=== PATIENT | female | born 1950 | race Caucasian/White ===

== ENCOUNTER → 2016-12-05 | Outpatient (CLI) | payer OTHER ==
[2016-12-05 16:32] LABS: BASOPHILS # (AUTO) 0.01 10*3/UL; BASOPHILS % (AUTO) 0.1 % (0-1); EOSINOPHILS % (AUTO) 0.1 % (0-8); HEMOGLOBIN 10.7 g/dL (12.0-16.0); IMM GRAN % (AUTO) 0.4 % (0-5); IMM GRAN# (AUTO) 0.03 10*3/UL; LYMPHOCYTES # (AUTO) 1.74 10*3/uL; LYMPHOCYTES % (AUTO) 23.5 % (10-50); MEAN CORPUSCULAR HEMOGLOBIN 24.2 PG (27-31); MEAN CORPUSCULAR HGB CONC 28.9 g/dL (33-37); MEAN PLATELET VOLUME 13.4 FL (7.4-12.2); MONOCYTES # (AUTO) 0.25 10*3/UL (0.3-0.8); MONOCYTES % (AUTO) 3.4 % (5-15); NEUTROPHILS # (AUTO) 5.36 10*3/UL; NEUTROPHILS % (AUTO) 72.5 % (50-80); RDW COEFFICIENT OF VARIATION 16.9 % (11.5-14.5); RED BLOOD COUNT 4.42 10^6/uL (4.20-5.40)
[2016-12-05 16:37] LABS: BILIRUBIN,TOTAL 0.6 mg/dL (0.3-1.2); CALCIUM 9.5 mg/dL (8.7-10.7); CREATININE 1.1 mg/dL (0.50-1.20); LDL CHOLESTEROL,CALCULATED 99.4 mg/dL; MAGNESIUM 1.9 mg/dL (1.6-2.4); POTASSIUM 4.6 meq/L (3.8-5.2); TOTAL PROTEIN 6.4 g/dL (6.1-8.0)
[2016-12-05 16:44] LABS: HEMOGLOBIN A1C 6.18 % (4.2-6.0); MEAN BLOOD GLUCOSE (CALC) 119.794 mg/dL
[2016-12-05 16:57] LABS: PLATELET MORPHOLOGY COMMENT NORMAL MORPHOLOGY (NORM)
== END ==
LOC: MOB LAB 15:34
PROVIDERS: ATTEND Family Medicine
DX: I10 Essential (primary) hypertension (principal); I25.10 Atherosclerotic heart disease of native coronary artery without angina pectoris; J44.9 Chronic obstructive pulmonary disease, unspecified; R73.09 Other abnormal glucose; N17.9 Acute kidney failure, unspecified; G89.29 Other chronic pain; Z79.01 Long term (current) use of anticoagulants; F17.210 Nicotine dependence, cigarettes, uncomplicated
CPT/HCPCS: 36415; 80053; 80061; 82306; 83036; 83735; 84100; 84443; 85025; 99213; G0463

== ENCOUNTER → 2016-12-18 | Outpatient (CLI) | payer OTHER | LOC: MMPC 11:11 | PROVIDERS: ATTEND Surgery | DX: D64.9 Anemia, unspecified (principal); K59.00 Constipation, unspecified; Z86.718 Personal history of other venous thrombosis and embolism | CPT/HCPCS: 99201 ==

== ENCOUNTER → 2017-02-11 | Outpatient (CLI) | payer OTHER | LOC: MMPC 09:00 | PROVIDERS: ATTEND Family Medicine | DX: G89.29 Other chronic pain (principal); S90.31XA Contusion of right foot, initial encounter; R60.0 Localized edema; Z79.01 Long term (current) use of anticoagulants | CPT/HCPCS: 99214; G0463 ==

== ENCOUNTER → 2017-02-23 | Outpatient (CLI) | payer OTHER | LOC: MMPC 09:00 | PROVIDERS: ATTEND Family Medicine | DX: M79.671 Pain in right foot (principal); M79.672 Pain in left foot; R60.0 Localized edema; L57.0 Actinic keratosis; G89.29 Other chronic pain | CPT/HCPCS: 99214; G0463 ==

== ENCOUNTER 2017-10-03 13:53 | Inpatient (IN) ==
[2017-10-03] MEDS ORDERED: NORMAL SALINE 10 ML SYRINGE FLUSH IVP PRN ×2 (14:05→16:35)
[2017-10-03] MEDS ORDERED: Sodium Chloride 0.9% 1,000 ML PRIMARY IV ONE (14:05)
--- NOTE | 2017-10-03 14:07 | PDOC ---
General Adult HPI - General Chief Complaint: General Medical Stated Complaint: DIZZINESS, SLEEPING A LOT, HYDROCODONE USE Date Seen by Provider: 10/03/17 Time Seen by Provider: 14:00 Source: POSITIVE: Patient, Other (family) Exam Limitations: POSITIVE: No limitations Nurse's Notes Reviewed & Considered: Yes EMS Report Reviewed & Considered: Verbal - History of Present Illness Initial Comment: The patient is a 67-year-old female who presents to the emergency department by ambulance with complaints of increased sleepiness and generalized weakness. The patient reports that for the past several weeks she has not felt well. Her daughter reports that she has been sleeping more than usual especially the past few days. Her daughter has been trying to get her to come to the emergency room for the past week. For the past couple of days she has pretty much slept all the time. She states that she does not feel well in general. She was weak enough that the ambulance was called to bring her to the emergency department. She denies any headache, chest pain, current abdominal pain, numbness or weakness in her arms or legs. She does have a history of COPD and wears oxygen at home. She was on 3 L when EMS arrived however her oxygen tubing was kinked. The patient does report cough which has been more productive recently. She thinks she might of been running a fever the past few days. Have you received a tetanus shot in the past 10 years?: Unknown - Patient Home Medications Home Medications: Home Medications Calcium Acetate 1 cap PO TID #180 cap 11/08/15 Hydroxychloroquine Sulfate 400 mg PO DAILY #60 tab 11/08/15 Albuterol Sulfate [ALBUTEROL NEB SOLN] 1 unit NEB QID PRN #1 box 12/19/15 Oxygen (O2) 1 unit IH QHS #3.5 unit 02/11/16 Tiotropium Br/Olodaterol HCl [Stiolto Respimat Inhal [place]] 4 gm INH QD #1 inhaler 05/29/16 Walker [Ultra-Light Rollator] 1 ea MC ONCE #1 ea 11/04/16 Atorvastatin Calcium 1 tab PO DAILY #30 tab 11/19/16 Ergocalciferol (Vitamin D2) [Vitamin D2] 1 cap PO 2XW #16 cap 12/08/16 Pantoprazole Sodium 1 tab PO BID #60 tab 01/19/17 Citalopram Hydrobromide [Citalopram Hbr] 20 mg PO DAILY #60 tab 02/11/17 Clopidogrel Bisulfate [Plavix] 75 mg PO DAILY #90 tab 02/23/17 Docusate Sodium [Doc-Q-Lace] 100 mg PO TID #270 cap 02/23/17 Umeclidinium [place] [Incruse Ellipta] 62.5 mcg INH QD #1 inhaler 04/01/17 Lisinopril 1 tab PO BID #60 tab 07/02/17 Tizanidine HCl 1 tab PO TID PRN #120 tab 07/02/17 predniSONE Tab [Deltasone Tab] 1 tab PO DAILY #30 tab 07/02/17 celecoxib 200 mg capsule 200 mg PO BID #60 cap 07/30/17 gabapentin 600 mg tablet 600 mg PO TID #90 tab 07/30/17 metoprolol tartrate 25 mg tablet 1 tab PO BID #60 tab 09/02/17 hydrocodone 5 mg-acetaminophen 325 mg tablet See Label Instructions PO QID PRN # 150 tab 09/14/17 - Patient Allergies Allergies/Adverse Reactions: Allergies 3 Allergy/AdvReac Type Severity Reaction Status Date / Time heparin Allergy Unknown NOT Verified 10/03/17 18:03 APPLICABLE metal Allergy Unknown RASH Uncoded 10/03/17 18:03 Past Medical History - heen HEENT History: Cataracts Cardiovascular History: Hypertension, CAD Respiratory History: COPD Gastrointestinal History: Denies History Genitourinary History: Renal Failure, Other (please comment) Additional Genitourinary History: hx of renal failure r/t pe/dvt in 2011, dialysis intitaited buyt kidney function returned Endocrine History: Denies History Musculoskeletal History: Arthritis, Rheumatoid Arthritis Prosthesis or Implant: Yes (screws and plates in R ankle) Neurological History: Denies History Blood Disorders: Denies History Psychiatric History: Denies History History of Sexually Transmitted Diseases: No Cancer History: Denies History History of MDRO: No History of Other Communicable Diseases: No Alcohol Use: None In the Past 12 Months, Have Used or Abuse Any Substance: None Previous Surgical History: Yes Type / Date of Surgery: L ankle, DVT Anesthesia Reactions: No Malignant Hyperthermia: No Significant Family History: No pertinent family hx Past Medical History Reviewed: Reviewed - No Changes ROS - Limitations ROS Limitations: No Limitations Constitution: REPORTS: Fever, Weakness (Generalized weakness) Cardiovascular: REPORTS: Other (She reports that actually the edema in her legs has been better recently). DENIES: Chest Pain, Heart Palpitations Respiratory: REPORTS: Cough Non Productive, Cough Productive, Shortness Of Breath (Chronic). DENIES: Hurts To Breathe, Wheezing Neurological: REPORTS: Confusion, Other (Increased sleeping). DENIES: Headache , Numbness, Weakness Gastrointestinal: REPORTS: Diarrhea. DENIES: Abdominal Pain, Nausea Musculoskeletal: REPORTS: Denies MS Symptoms Genitourinary: REPORTS: Denies Symptoms Eyes: REPORTS: Denies Symptoms ENT: REPORTS: Denies Symptoms Skin: DENIES: Rash General Adult Exam - General Appearance General Appearance: POSITIVE: Other (The patient is awake, she does answer questions appropriately, she does appear chronically ill) - HEENT HEENT: POSITIVE: Head Inspection Nml, Eyes Inspection Nml, Ears Inspection Nml, Nose Inspection Nml, Dry Mucous Membranes - Neck Neck: POSITIVE: Normal Inspection. NEGATIVE: Lymphadenopathy - Respiratory Respiratory: POSITIVE: No Respiratory Distress, Other (She has diminished breath sounds bilaterally) - Cardiovascular Cardiovascular: POSITIVE: Regular Rate & Rhythm, No Murmur Peripheral Pulses: Dorsalis-pedis (R): 2+, Dorsalis-pedis (L): 2+ - Abdomen Abdomen: Soft: (All Quadrants), Denies Tenderness: (All Quadrants) - Skin Skin: POSITIVE: Normal Color, No Rash - Extremities Extremity: Non-Tender: (All Extremities), Normal ROM: (All Extremities), Normal Inspection: (All Extremities) - Neurological / Psychological Neurological: POSITIVE: personal care worker Normal As Tested, Motor Normal, Sensation Normal, Other (No focal neurologic deficits) General Adult Progress - Results Reviewed by me Xrays/CTs/US Reviewed by me: Yes Discussed with Radiologist: Yes Radiology Findings: Initial chest x-ray showed possible infiltrate in the right middle lobe per radiologist. CT scan of the chest shows bilateral pleural effusions right greater than left with airspace disease in the right middle lobe. Lab Results Reviewed by Me: Yes CBC and BMP: 10/03/17 14:17 10/03/17 14:17 EKG Interpretation:: POSITIVE: Normal Sinus Rhythm, Normal Rate, Normal ST/T - Patient's Progress MDM / ED Course: The patient was afebrile on arrival here. Blood cultures and lactate were drawn with initial IV start. Her EKG shows A. fib/flutter with a rate of 122. An IV was established and she did receive a bolus of normal saline. Initial venous blood gas revealed a pH of 7.3 to with a PCO2 of 62. Chest x-ray shows possible infiltrate in the right middle lobe per radiologist. Her d-dimer was elevated at 1.6 and her troponin was normal. White blood cell count was also normal. CTA of the chest was done and found bilateral pleural effusions right greater than left as well as some airspace disease in the right middle lobe. Findings are discussed with the patient and her family as well as Dr. Fuchs. Dr. Fuchs has made arrangements to admit patient for further treatment. The patient was started on Rocephin 2 g and Zithromax 500 mg for treatment of pneumonia. Patient Care Time - Estimated PCT Patient Care Time (In Minutes): 35 Vital Signs - Recent Vital Signs Vital Signs: Vital Signs (Last 8 hours) Temp Pulse Pulse Resp BP Pulse Ox 10/03/17 17:00 98.3 F 124 H 20 152/100 91 10/03/17 16:35 92 10/03/17 14:26 121 H 10/03/17 13:53 98.0 F 122 H 19 170/113 97 - VS Reviewed Vital Signs Reviewed: Yes Discharge Clinical Impression: Pneumonia, Atrial fibrillation and flutter, Confusion Discharge Disposition: Admit to Inpatient Condition: Fair Date Decision to Admit to Inpatient: 10/03/17 Time Decision to Admit to Inpatient: 16:15
--- NOTE | 2017-10-03 14:28 | EKG ---
[address] [address] Measurements Intervals [place] Rate: 121 P: MT: 0 QRS: 45 QRSD: 101 T: 54 QT: 330 QTc: 402 Interpretive Statements ATRIAL FIBRILLATION WITH RAPID VENTRICULAR RESPONSE NONSPECIFIC ST & T-WAVE ABNORMALITY ABNORMAL RHYTHM ECG Compared to ECG 05/15/2016 15:53:30 T-wave abnormality now present Sinus rhythm no longer present Electronically Signed On 10-04-17 12:37:28 [facility] by Pedro Pablo Izaguirre [email or web address]
[2017-10-03 14:39] LABS: VENOUS PH 7.32 (7.32-7.42)
[2017-10-03 14:48] LABS: BUN/CREATININE RATIO 28.33 (6-20); MAGNESIUM 1.9 mg/dL (1.6-2.4); SERUM ALBUMIN 3.1 g/dL (3.5-4.8)
[2017-10-03 15:10] LABS: Hematocrit [HCT] 35.1 % (37.0-47.0); Hemoglobin [HGB] 10.6 g/dL (12.0-16.0); MEAN CORPUSCULAR HEMOGLOBIN 25.9 PG (27-31); MEAN CORPUSCULAR HGB CONC 30.4 g/dL (33-37); MEAN CORPUSCULAR VOLUME 85 FL (81-99); MEAN PLATELET VOLUME 10.6 FL (7.4-12.2); NEUTROPHILS % (AUTO) 80.2 % (50-80); RED BLOOD COUNT 4.11 10^6/uL (4.20-5.40)
[2017-10-03 15:11] LABS: BASOPHILS # (AUTO) 0.01 10*3/UL; BASOPHILS % (AUTO) 0.1 % (0-1); EOSINOPHILS # (AUTO) 0.05 10*3/UL; EOSINOPHILS % (AUTO) 0.7 % (0-8); LYMPHOCYTES # (AUTO) 1.17 10*3/uL; MONOCYTES # (AUTO) 0.31 10*3/UL (0.3-0.8); NEUTROPHILS # (AUTO) 6.24 10*3/UL; PLATELET MORPHOLOGY COMMENT NORMAL MORPHOLOGY (NORM); WBC MORPHOLOGY COMMENT NORMAL MORPHOLOGY (NORM)
[2017-10-03 15:17] LABS: RBC MORPHOLOGY COMMENT SEE COMMENTS (NORM)
--- NOTE | 2017-10-03 15:28 | DI ---
Exam: FILM CXR Single frontal view chest INDICATION: Cough, hypoxia COMPARISON: Chest x-ray 03/03/16 FINDINGS: There is infiltrate in the right mid and lower lung field. Mild elevation right hemidiaphragm noted. Remaining lung sanford are clear. There is cardiomegaly. No venous congestion. Mediastinal contour within normal limits. Atherosclerotic calcification aortic knob. Possible trace right pleural effusion. Bony elements are within normal limits for age. No acute osseous abnormality. IMPRESSION: Airspace infiltrate in the right mid and lower lung field. Correlate for pneumonia. Possible trace right effusion. Cardiomegaly. No venous congestion.
--- NOTE | 2017-10-03 16:26 | PDOC ---
HPI - History of Present Illness History of Present Illness: This very nice 67-year-old female past medical history significant for COPD with chronic oxygen use and rheumatoid arthritis in the last few days she's been having of increased sleepiness and generalized weakness the last 2 days her daughter has been trying to get her to the emergency room but she would not come finally was evaluated ambulance was called and brought her to the emergency room was found to have right middle lower lobe pneumonia no PE on CAT scan also has productive cough which she developed lately Past Medical History Medical History: Rheumatoid arthritis, coronary artery disease, hypertension Surgical History: Cataract surgery In the Past 12 Months, Have Used or Abuse Any of the Following Substance: None Medication / Allergies Home Medications: Home Medications Medication Instructions Recorded Confirmed Type Calcium Acetate 1 cap PO TID #180 cap 11/08/15 10/03/17 History Hydroxychloroquine Sulfate 400 mg PO DAILY #60 tab 11/08/15 10/03/17 History Albuterol Sulfate [ALBUTEROL NEB 1 unit NEB QID PRN #1 box 12/19/15 10/03/17 History SOLN] Oxygen (O2) 1 unit IH QHS #3.5 unit 02/11/16 10/03/17 History Tiotropium Br/Olodaterol HCl 4 gm INH QD #1 inhaler 05/29/16 10/03/17 History [Stiolto Respimat Inhal [place]] Walker [Ultra-Light Rollator] 1 ea MC ONCE #1 ea 11/04/16 10/03/17 Rx Atorvastatin Calcium 1 tab PO DAILY #30 tab 11/19/16 10/03/17 Rx Ergocalciferol (Vitamin D2) 1 cap PO 2XW #16 cap 12/08/16 10/03/17 Rx [Vitamin D2] Pantoprazole Sodium 1 tab PO BID #60 tab 01/19/17 10/03/17 Rx Citalopram Hydrobromide 20 mg PO DAILY #60 tab 02/11/17 10/03/17 Rx [Citalopram Hbr] Clopidogrel Bisulfate [Plavix] 75 mg PO DAILY #90 tab 02/23/17 10/03/17 Rx Docusate Sodium [Doc-Q-Lace] 100 mg PO TID #270 cap 02/23/17 10/03/17 Rx Olodaterol HCl [[place] 1 unit INH ASDIR #4 #4 Samples 02/23/17 10/03/17 Sample Respimat] Sample Umeclidinium [place] [Incruse 62.5 mcg INH QD #1 inhaler 04/01/17 10/03/17 Rx Ellipta] Lisinopril 1 tab PO BID #60 tab 07/02/17 10/03/17 Clinic Tizanidine HCl 1 tab PO TID PRN #120 tab 07/02/17 10/03/17 Clinic predniSONE Tab [Deltasone Tab] 1 tab PO DAILY #30 tab 07/02/17 10/03/17 Clinic celecoxib 200 mg capsule 200 mg PO BID #60 cap 07/30/17 10/03/17 Rx gabapentin 600 mg tablet 600 mg PO TID #90 tab 07/30/17 10/03/17 Rx metoprolol tartrate 25 mg tablet 1 tab PO BID #60 tab 09/02/17 10/03/17 Rx hydrocodone 5 mg-acetaminophen 325 See Label Instructions PO QID PRN 09/14/17 Rx mg tablet #150 tab Mometasone/Formoterol [Dulera 100 8.8 gm IH QID 10/03/17 10/03/17 History Mcg/5 Mcg Inhaler] Allergies/Adverse Reactions: Allergies 3 Allergy/AdvReac Type Severity Reaction Status Date / Time heparin Allergy Unknown NOT Verified 10/03/17 18:03 APPLICABLE metal Allergy Unknown RASH Uncoded 10/03/17 18:03 Review of Systems - Review of Systems All Systems: Reviewed & No Additional Complaints Except as Stated - Respiratory Respiratory: REPORTS: Cough - Cardiovascular Cardiovascular: DENIES: Negative System Review, Chest Pain, Edema, Syncope, Palpitations, Orthopnea, Paroxysmal Nocturnal Dyspnea, Other, See HPI - Gastrointestinal Gastrointestinal / Abdominal: DENIES: Negative System Review, Nausea, Vomiting, Diarrhea, Constipation, Abdominal Pain, Bloody Stool, Poor Appetite, Heartburn, Regurgitation, Bloating, Lactose Intolerance, Melena, Bright Red Blood per Rectum, Other, See HPI Exam - Vitals Vital Signs: Vital Signs Height 5 ft 9 in Weight 175 lb - General General Appearance: No Acute Distress, Cooperative - Head Head Exam: Normal Inspection, Normocephalic, Atraumatic - Eye Eye Exam: POSITIVE: Normal Appearance, PERRL, EOMI, No Scleral Icterus - Neck Neck Exam: Normal Inspection, Full ROM, No Tenderness, No Lymphadenopathy, No Thyromegaly, JVP is not Raised - Respiratory Respiratory Exam: POSITIVE: Clear to Auscultation - Bilaterally, Breathing Non Labored, Normal To Percussion, Normal to Percussion and Palpation, Decreased Breath Sounds - Cardiovascular Cardiovascular Exam: POSITIVE: RRR, No Murmur, No Clicks, No Gallops, No Rubs, PMI Non-Displaced - GI/Abdominal GI/Abdominal Exam: POSITIVE: Normal Bowel Sounds, Non Tender, Non Distended, Soft, No Masses, No Hepatomegaly, No Splenomegaly, No Organomegaly - Extremities Extremities Exam: POSITIVE: Normal Inspection, Full ROM, Normal Capillary Refill , No Clubbing Present, No Edema Present, No Cyanosis Present, Negative Alice's sign, Dosalis Pedis Pulses - Stong & Regular Results - Labs CBC and BMP: 10/03/17 14:17 10/03/17 14:17 Assessment and Plan - Patient Problems (1) Pneumonia Current Visit: Yes Status: Acute Comment: Seen on chest x-ray and started Rocephin and Zithromax Code(s): J18.9 - Pneumonia, unspecified organism Qualifiers: Pneumonia type: due to unspecified organism Laterality: right Lung location: lower lobe of lung Qualified Code(s): J18.1 - Lobar pneumonia, unspecified organism (2) Chronic obstructive pulmonary disease Current Visit: No Status: Acute Onset Date: 11/08/15 Comment: Into new inhalers patient also on chronic prednisone for rheumatoid arthritis Code(s): J44.9 - Chronic obstructive pulmonary disease, unspecified Qualifiers: (3) Rheumatoid arthritis Current Visit: No Status: Acute Comment: Continue usual medication Code(s): M06.9 - Rheumatoid arthritis, unspecified
[2017-10-03] MEDS ORDERED: ERGOCALCIFEROL 50,000 IU CAPSULE PO SCH (16:35)
[2017-10-03] MEDS ORDERED: TIOTROPIUM BR INH SCH (16:35)
[2017-10-03] MEDS ORDERED: OLODATEROL HCL INH SCH (16:35)
[2017-10-03] MEDS ORDERED: LIDOCAINE W/ SODIUM BICARB 0.5 ML SYR SUBD PRN (16:35)
[2017-10-03] MEDS ORDERED: CEFTRIAXONE SODIUM 2 GM VIAL IV ONE (16:54)
[2017-10-03] MEDS ORDERED: AZITHROMYCIN 500 MG VIAL IV ONE (16:55)
[2017-10-03] MEDS ORDERED: Sodium Chloride 0.9% 100 ML IV ONE (16:55)
[2017-10-03] MEDS ORDERED: Sodium Chloride 0.9% 250 ML IV ONE (16:56)
[2017-10-03] MEDS ORDERED: cefTRIAXone Inj 2 GM in Sodium Chloride 0.9% 100 ML IV SCH (17:00)
--- NOTE | 2017-10-03 17:00 | DI ---
Exam: CTA CHEST W/WO Contrast INDICATION: Hypoxia, elevated d-dimer TECHNIQUE: Multiple, contiguous axial cuts of the chest are obtained before and following the administration of 60 cc of Isovue-300 IV contrast. High resolution axial images as well as sagittal and coronal reformatted images are available. COMPARISON: CT angiogram chest 02/11/16, chest radiograph 10/03/17 FINDINGS: No pulmonary emboli. Moderate right and small left pleural effusion. Associated compressive atelectasis of adjacent lung bases. At the periphery of the right middle lobe lateral segment there is focal airspace opacity. Remaining lung sanford are clear. No pneumothorax. No adenopathy. Extensive vascular calcification of the thoracic aorta and larger branches. Thoracic aorta normal caliber without dissection. There is coronary artery calcification. Cardiomegaly. No pericardial effusion. Multilevel endplate degenerative osteophyte formation of the thoracic spine. No acute osseous abnormality. IMPRESSION: 1. No pulmonary embolism. 2. Moderate right and small left free-flowing pleural effusion. Associated compressive atelectasis of adjacent lung bases. 3. At the periphery of the right middle lobe lateral segment there is patchy airspace opacity. Correlate for pneumonia on a clinical basis. Remaining lung sanford are clear. 3. Cardiomegaly with coronary artery calcification.
[2017-10-03] MEDS ORDERED: cefTRIAXone Inj 2 GM in Sodium Chloride 0.9% 100 ML IV ONE (17:05)
[2017-10-03] MEDS ORDERED: ALBUTEROL SULFATE 2.5 MG/3 ML NEB SCH (19:00)
[2017-10-03] MEDS: HYDROcodone-APAP 5 MG -325 MG TABLET PO PRN (19:21)
[2017-10-03 19:40] LABS: CLARITY,URINE CLEAR (CLEAR); COLOR,URINE YELLOW (Y); PH,URINE 5.5 (5.0-8.5); PROTEIN,URINE 30 mg/dl (NEG); URINE SAMPLE TYPE CLEAN CATCH URINE
[2017-10-03 19:41] LABS: BACTERIA,URINE MANY; BILIRUBIN,URINE SMALL (NEG); GLUCOSE, URINE (UA) NEGATIVE (NEG); NITRATE,URINE POSITIVE (NEG); OCCULT BLOOD,URINE NEGATIVE (NEG); SQUAMOUS EPITHELIAL CELL,UR MODERATE
[2017-10-03] MEDS: LEVALBUTEROL HCL 1.25 MG/3 ML NEB SCH (19:42)
[2017-10-03] MEDS: Metoprolol TARTRATE Tab 25 MG TAB PO SCH (20:39)
[2017-10-03] MEDS: DOCUSATE 100 MG CAPSULE PO SCH (20:39)
[2017-10-03] MEDS: GABAPENTIN 300 MG CAPSULE PO SCH (20:39)
[2017-10-03] MEDS: PANTOPRAZOLE 40 MG TABLET PO SCH (20:40)
[2017-10-03] MEDS: LISINOPRIL 5 MG TABLET PO SCH (20:40)
[2017-10-03] MEDS: CALCIUM ACETATE PO SCH (20:41)
[2017-10-04] MEDS: LEVALBUTEROL HCL 1.25 MG/3 ML NEB SCH ×4 (01:38→18:40)
[2017-10-04 06:27] LABS: Hematocrit [HCT] 33.9 % (37.0-47.0); Hemoglobin [HGB] 10.3 g/dL (12.0-16.0); MEAN CORPUSCULAR HEMOGLOBIN 25.8 PG (27-31); MEAN CORPUSCULAR VOLUME 85 FL (81-99); RED BLOOD COUNT 3.98 10^6/uL (4.20-5.40)
[2017-10-04 06:28] LABS: BASOPHILS # (AUTO) 0.03 10*3/UL; BASOPHILS % (AUTO) 0.3 % (0-1); EOSINOPHILS # (AUTO) 0.09 10*3/UL; EOSINOPHILS % (AUTO) 0.9 % (0-8); LYMPHOCYTES # (AUTO) 2.68 10*3/uL; MEAN CORPUSCULAR HGB CONC 30.3 g/dL (33-37); MEAN PLATELET VOLUME 9.3 FL (7.4-12.2); MONOCYTES # (AUTO) 1.04 10*3/UL (0.3-0.8); NEUTROPHILS # (AUTO) 5.66 10*3/UL; NEUTROPHILS % (AUTO) 59.6 % (50-80); PLATELET MORPHOLOGY COMMENT SEE COMMENTS (NORM); WBC MORPHOLOGY COMMENT NORMAL MORPHOLOGY (NORM)
[2017-10-04 06:29] LABS: RBC MORPHOLOGY COMMENT SEE COMMENTS (NORM)
[2017-10-04] MEDS: PANTOPRAZOLE 40 MG TABLET PO SCH (06:50)
[2017-10-04 07:52] LABS: SERUM ALBUMIN 3.1 g/dL (3.5-4.8)
[2017-10-04] MEDS ORDERED: HYDROXYCHLOROQUINE SULFATE 400 MG PO SCH (09:00)
[2017-10-04] MEDS: predniSONE Tab 20 MG TAB PO SCH (09:04)
[2017-10-04] MEDS: DOCUSATE 100 MG CAPSULE PO SCH ×4 (09:04→21:01)
[2017-10-04] MEDS: LISINOPRIL 5 MG TABLET PO SCH ×2 (09:05→21:02)
[2017-10-04] MEDS: Metoprolol TARTRATE Tab 25 MG TAB PO SCH ×2 (09:05→21:01)
[2017-10-04] MEDS: GABAPENTIN 300 MG CAPSULE PO SCH (09:05)
[2017-10-04] MEDS: CITALOPRAM 20 MG TABLET PO SCH (09:05)
--- NOTE | 2017-10-04 12:25 | PDOC(PROG) ---
Interval History: Doing much better breathing better Objective : Data - Labs CBC and BMP: 10/04/17 05:55 10/04/17 05:55 Objective : Exam - General General Appearance: No Acute Distress - Neck Neck Exam: Normal Inspection, Full ROM, No Tenderness - Respiratory Respiratory Exam: Clear to Auscultation - Bilaterally, Breathing Non Labored, Normal To Percussion, Normal to Percussion and Palpation - Cardiovascular Cardiovascular Exam: RRR, No Murmur, No Clicks, No Gallops, No Rubs, PMI Non- Displaced - Rectal Rectal Exam: Deferred - External Exam: Deferred Exam: Deferred - Extremities Extremities Exam: No Clubbing Present, No Edema Present, No Cyanosis Present Assessment and Plan - Patient Problems (1) Pneumonia Current Visit: Yes Status: Acute Comment: Much better continuing antibiotics the lungs are moving more air Code(s): J18.9 - Pneumonia, unspecified organism Qualifiers: Pneumonia type: due to unspecified organism Laterality: right Lung location: lower lobe of lung Qualified Code(s): J18.1 - Lobar pneumonia, unspecified organism (2) Chronic obstructive pulmonary disease Current Visit: No Status: Acute Onset Date: 11/08/15 Comment: Improving Code(s): J44.9 - Chronic obstructive pulmonary disease, unspecified Qualifiers: (3) Rheumatoid arthritis Current Visit: No Status: Acute Comment: Continue current meds Code(s): M06.9 - Rheumatoid arthritis, unspecified
[2017-10-04] MEDS: CALCIUM ACETATE PO SCH (12:57)
[2017-10-04] MEDS: NICOTINE 21 MG /DAY PATCH TRANSDERM SCH (13:28)
[2017-10-04] MEDS ORDERED: LIDOCAINE HCL 2 % 10 ML JELLY URO-JECT TOPICAL PRN (13:40)
[2017-10-04 16:00] LABS: ABG BASE EXCESS 7 MMOL/L (-2-2); ABG OXYGEN SATURATION 94 % (90-100); ABG PCO2 84 MMHG (34-38); ABG PH 7.22 (7.35-7.45); ABG PO2 86 MMHG (65-75); ALLEN TEST YES; COLLECTION SITE LEFT RADIAL
[2017-10-04] MEDS ORDERED: methylPREDNISolone Succ Inj 250 MG in Sodium Chloride 0.9% 100 ML IV ONE (16:05)
[2017-10-04 16:10] LABS: SERUM ALBUMIN 3.2 g/dL (3.5-4.8)
[2017-10-04] MEDS ORDERED: METHYLPREDNISOLONE ONE (16:13)
[2017-10-04 16:19] LABS: Hematocrit [HCT] 33.3 % (37.0-47.0); Hemoglobin [HGB] 10.2 g/dL (12.0-16.0); MEAN CORPUSCULAR HEMOGLOBIN 26.2 PG (27-31); MEAN CORPUSCULAR HGB CONC 30.7 g/dL (33-37); MEAN CORPUSCULAR VOLUME 85 FL (81-99); RED BLOOD COUNT 3.9 10^6/uL (4.20-5.40)
[2017-10-04 16:20] LABS: BASOPHILS # (AUTO) 0.02 10*3/UL; BASOPHILS % (AUTO) 0.2 % (0-1); EOSINOPHILS # (AUTO) 0.08 10*3/UL; LYMPHOCYTES # (AUTO) 0.75 10*3/uL; MEAN PLATELET VOLUME 10.2 FL (7.4-12.2); MONOCYTES # (AUTO) 0.32 10*3/UL (0.3-0.8); MONOCYTES % (AUTO) 3.9 % (5-15); NEUTROPHILS # (AUTO) 7.03 10*3/UL; NEUTROPHILS % (AUTO) 85.8 % (50-80); PLATELET MORPHOLOGY COMMENT NORMAL MORPHOLOGY (NORM); WBC MORPHOLOGY COMMENT NORMAL MORPHOLOGY (NORM)
[2017-10-04 16:21] LABS: RBC MORPHOLOGY COMMENT SEE COMMENTS (NORM)
[2017-10-04] MEDS: cefTRIAXone Inj 2 GM in Sodium Chloride 0.9% 100 ML IV SCH (16:56)
[2017-10-04] MEDS ORDERED: cefTRIAXone 1 GM VIAL ONE (17:00)
[2017-10-04 17:54] LABS: ABG BASE EXCESS 10 MMOL/L (-2-2); ABG OXYGEN SATURATION 80 % (90-100); ABG PCO2 55 MMHG (34-38); ABG PH 7.41 (7.35-7.45); ABG PO2 45 MMHG (65-75); COLLECTION SITE LEFT RADIAL
[2017-10-04 17:55] LABS: ALLEN TEST YES
[2017-10-04] MEDS: ATORVASTATIN 20 MG TABLET PO SCH (21:02)
[2017-10-04] MEDS: methylPREDNISolone 40 MG/1 ML VIAL IVP SCH (21:49)
[2017-10-05] MEDS: LEVALBUTEROL HCL 1.25 MG/3 ML NEB SCH ×4 (00:07→19:06)
[2017-10-05] MEDS: methylPREDNISolone 40 MG/1 ML VIAL IVP SCH ×4 (02:54→21:58)
[2017-10-05 06:27] LABS: Hematocrit [HCT] 28.9 % (37.0-47.0); Hemoglobin [HGB] 8.8 g/dL (12.0-16.0); MEAN CORPUSCULAR HEMOGLOBIN 25.5 PG (27-31); MEAN CORPUSCULAR HGB CONC 30.4 g/dL (33-37); MEAN CORPUSCULAR VOLUME 84 FL (81-99); MEAN PLATELET VOLUME 10.8 FL (7.4-12.2); RED BLOOD COUNT 3.45 10^6/uL (4.20-5.40)
[2017-10-05 06:33] LABS: BLOOD UREA NITROGEN 27 mg/dL (7-22); SERUM ALBUMIN 2.9 g/dL (3.5-4.8)
[2017-10-05 08:39] LABS: VENOUS PH 7.45 (7.32-7.42)
[2017-10-05] MEDS: Patch Removal PATCH TRANSDERM SCH (09:00)
[2017-10-05] MEDS: DOCUSATE 100 MG CAPSULE PO SCH ×3 (09:23→20:04)
[2017-10-05] MEDS: Metoprolol TARTRATE Tab 25 MG TAB PO SCH ×2 (09:23→20:05)
[2017-10-05] MEDS: CITALOPRAM 20 MG TABLET PO SCH (09:23)
[2017-10-05] MEDS: LISINOPRIL 5 MG TABLET PO SCH ×2 (09:23→20:04)
[2017-10-05] MEDS: predniSONE Tab 20 MG TAB PO SCH (09:24)
[2017-10-05] MEDS: NICOTINE 21 MG /DAY PATCH TRANSDERM SCH (09:24)
[2017-10-05] MEDS ORDERED: CYANOCOBALAMIN 1000 MCG/1 ML VIAL IM ONE (11:06)
--- NOTE | 2017-10-05 11:10 | PDOC(PROG) ---
Interval History: Patient is doing much much better today awake oriented 3 did quite well with the BiPAP. Objective : Data - Labs CBC and BMP: 10/05/17 06:00 10/05/17 06:00 Objective : Exam - Neck Neck Exam: Normal Inspection, Full ROM, No Tenderness - Respiratory Respiratory Exam: Clear to Auscultation - Bilaterally, Breathing Non Labored, Normal To Percussion, Normal to Percussion and Palpation - Cardiovascular Cardiovascular Exam: RRR, No Murmur, No Clicks, No Gallops, No Rubs, PMI Non- Displaced - GI/Abdominal GI/Abdominal Exam: Normal Bowel Sounds, Non Tender, Non Distended, Soft, No Masses, No Hepatomegaly, No Splenomegaly, No Organomegaly - Rectal Rectal Exam: Deferred Assessment and Plan - Patient Problems (1) Pneumonia Current Visit: Yes Status: Acute Comment: Continue IV antibiotics Code(s): J18.9 - Pneumonia, unspecified organism Qualifiers: Pneumonia type: due to unspecified organism Laterality: right Lung location: lower lobe of lung Qualified Code(s): J18.1 - Lobar pneumonia, unspecified organism (2) Chronic obstructive pulmonary disease Current Visit: No Status: Acute Onset Date: 11/08/15 Comment: Added steroids patient had CO2 retention we needed to start BiPAP now within normal limits most likely secondary to Neurontin with central nervous system depression stop this medication patient is aware Code(s): J44.9 - Chronic obstructive pulmonary disease, unspecified Qualifiers: (3) Rheumatoid arthritis Current Visit: No Status: Acute Comment: Patient is not complaining of any pain Code(s): M06.9 - Rheumatoid arthritis, unspecified (4) Anemia Current Visit: Yes Status: Acute Comment: Started ferrous gluconate and B12 injection check level Code(s): D64.9 - Anemia, unspecified Qualifiers: Anemia type: iron deficiency
[2017-10-05] MEDS ORDERED: CALCIUM CARBONATE 500 MG (TUMS) CHEWABLE TABLET PO PRN (12:06)
[2017-10-05] MEDS ORDERED: CALCIUM CARBONATE 500 MG (TUMS) CHEWABLE TABLET PO ONE (12:17)
[2017-10-05] MEDS ORDERED: Influenza 17-18 Vaccine (6mo+) Quad 60mcg/0.5ml PF IM ONE (13:09)
--- NOTE | 2017-10-05 14:11 | PTI REPORT ---
Thank you for the referral of Luda Castillo. She was seen on 10/05/17 for an inpatient evaluation secondary to weakness. SUBJECTIVE: The patient is a 67-year-old female. The patient reports that she lives in [place] with her , daughter, and her family. The patient reports that she lives in a trailer home. The patient reports she has five stairs to get into her home and uses a four wheeled walker. The patient is on 2-3 liters of oxygen at home. She receives assistance with all ADLs from her family. The patient reports she has neuropathy in her feet. She states she is not very active and she stays in her bedroom a lot of the time. PAST MEDICAL HISTORY: Past medical history can be found in the patient's medical record. OBJECTIVE FINDINGS: General observations: The patient was seen in bed with a Bi-PAP on and oxygen saturation ranged anywhere from 83-91% with heart rate around 130 beats per minute. Bed mobility: The patient required min assist x1 for supine to sit transfer to edge of bed. Oxygen saturation was monitored while the patient was seated edge of bed. The patient required stand by assist to transfer from sit to supine. Transfers: The patient required mod assist x2 for sit to stand transfer from edge of bed with bed elevated a little bit with standard walker and max cues for technique and hand placement. The patient was able to take two side steps to reposition to head of bed with contact guard assist x2 for safety. ASSESSMENT: The patient is a 67-year-old female that presents with pneumonia, COPD, and generalized weakness. The patient would benefit from skilled therapy to improve functional mobility and to return to least restrictive environment. The patient's prognosis for therapy is fair. Problem List: Decreased strength Decreased mobility Decreased endurance Short-Term Goals: To be met by discharge from inpatient: Patient will be able to ascend and descend five stairs in order to return home safely. Patient will be able to ambulate 150 feet with least restrictive assistive device in order to return home safely. Patient will be able to tolerate 15 minutes of activity in order to improve overall endurance and mobility. Long-Term Goals: To be met following discharge from inpatient: Patient will be able to return home safely per prior level of function. TREATMENT PLAN: Patient will be seen B.I.D during the week and one time per day over the weekend as an inpatient for therapeutic exercise, neuromuscular reeducation, functional activity, gait training, and modalities as needed. INITIAL TREATMENT: Treatment today consisted of the initial evaluation followed by seated bed mobility and seated bed endurance. The patient was able to sit edge of bed x15 minutes with vitals being monitored in stand by assistance. The patient report lightheadedness and dizziness during seated bed activities. The patient was returned to bed post treatment with call light within reach and bed alarm activated. FLORECITA
[2017-10-05] MEDS: ONDANSETRON 4 MG/2 ML VIAL IVP PRN (14:59)
[2017-10-05] MEDS: FERROUS GLUCONATE 324 MG TABLET PO SCH ×2 (15:05→20:05)
--- NOTE | 2017-10-05 16:25 | PT.PROG ---
Progress Note Progress Note: Patient refused therapy this afternoon, patient reported being nauseous.
[2017-10-05] MEDS: cefTRIAXone Inj 2 GM in Sodium Chloride 0.9% 100 ML IV SCH (17:03)
[2017-10-05] MEDS ORDERED: ALPRAZolam Tab 0.25 MG TABLET PO PRN ×2 (17:18→18:28)
[2017-10-05 18:05] LABS: VENOUS PH 7.37 (7.32-7.42)
[2017-10-05] MEDS: Sodium Chloride 0.9% 1,000 ML PRIMARY IV SCH (19:49)
[2017-10-05] MEDS: ATORVASTATIN 20 MG TABLET PO SCH (20:04)
[2017-10-05] MEDS: HYDROcodone-APAP 5 MG -325 MG TABLET PO PRN (20:06)
[2017-10-06] MEDS: LEVALBUTEROL HCL 1.25 MG/3 ML NEB SCH ×3 (01:11→13:51)
[2017-10-06] MEDS: methylPREDNISolone 40 MG/1 ML VIAL IVP SCH ×3 (04:27→14:54)
[2017-10-06] MEDS ORDERED: Sodium Chloride 0.9% 1,000 ML PRIMARY IV ONE ×2 (05:05→10:18)
[2017-10-06] MEDS: ONDANSETRON 4 MG/2 ML VIAL IVP PRN (08:11)
[2017-10-06] MEDS ORDERED: DILTIAZEM CD 240 MG CAP PO SCH (09:00)
[2017-10-06 09:09] LABS: VENOUS PH 7.36 (7.32-7.42)
[2017-10-06] MEDS: predniSONE Tab 20 MG TAB PO SCH (09:32)
[2017-10-06] MEDS: DOCUSATE 100 MG CAPSULE PO SCH ×2 (09:33→14:53)
[2017-10-06] MEDS: FERROUS GLUCONATE 324 MG TABLET PO SCH ×2 (09:34→14:53)
[2017-10-06] MEDS: CITALOPRAM 20 MG TABLET PO SCH (09:34)
[2017-10-06] MEDS: NICOTINE 21 MG /DAY PATCH TRANSDERM SCH (09:35)
[2017-10-06] MEDS ORDERED: Influenza 17-18 Vaccine (6mo+) Quad 60mcg/0.5ml PF IM ONE (09:40)
[2017-10-06] MEDS: Patch Removal PATCH TRANSDERM SCH (10:04)
[2017-10-06] MEDS: Sodium Chloride 0.9% 1,000 ML PRIMARY IV SCH (10:12)
[2017-10-06] MEDS ORDERED: FUROSEMIDE 10 MG/1 ML - 4 ML IVP ONE (10:19)
--- NOTE | 2017-10-06 11:33 | OT.PROG ---
Progress Note Progress Note: S: pt stated half way through therapy that she was feeling nauseous. She also told us that she was not going to do much. O: pt was seen in her room needing min A to completed bed mobility supine to EOB. She then completed x2 sit to stands, each for 1 min. Pt also completed PT after sitting . She completed bed mobility from EOB to supine Ind and nursing was present as she was feeling nauseous. A: pt may continue to benefit from therapy to increase her activity tolerance. At this time pt is not real motivated. P:continue per POC.
--- NOTE | 2017-10-06 11:34 | PDOC(PROG) ---
Interval History: Patient feels better she is definitely more awake BiPAP is been working great off the Neurontin now Objective : Data - Labs CBC and BMP: 10/05/17 06:00 10/05/17 06:00 Objective : Exam - General General Appearance: Cooperative - Respiratory Respiratory Exam: Clear to Auscultation - Bilaterally, Breathing Non Labored, Normal To Percussion, Normal to Percussion and Palpation, Decreased Breath Sounds - Cardiovascular Cardiovascular Exam: RRR, No Murmur, No Clicks, No Gallops, No Rubs, PMI Non- Displaced - GI/Abdominal GI/Abdominal Exam: Normal Bowel Sounds, Non Tender, Non Distended, Soft, No Masses, No Hepatomegaly, No Splenomegaly, No Organomegaly Assessment and Plan - Patient Problems (1) Pneumonia Current Visit: Yes Status: Acute Comment: Continue IV antibiotics Code(s): J18.9 - Pneumonia, unspecified organism Qualifiers: Pneumonia type: due to unspecified organism Laterality: right Lung location: lower lobe of lung Qualified Code(s): J18.1 - Lobar pneumonia, unspecified organism (2) Chronic obstructive pulmonary disease Current Visit: No Status: Acute Onset Date: 11/08/15 Comment: Continue IV steroids and inhalers Code(s): J44.9 - Chronic obstructive pulmonary disease, unspecified Qualifiers: (3) Rheumatoid arthritis Current Visit: No Status: Acute Comment: Stable at present time Code(s): M06.9 - Rheumatoid arthritis, unspecified (4) Anemia Current Visit: Yes Status: Acute Comment: Most likely secondary to iron deficiency will heme check stools will prop possible need a colonoscopy this patient is a heavy smoker anemia we will do a CT scan abdomen and pelvis also considering she has been having low urine output I believe she is dry we have given her half a liter bolus last night and 1 L today and has been on 75 an hour yesterday and I believe the blood pressure is a little elevated as a compensatory mechanism to keep the brain and kidneys perfused. Also I stopped the lisinopril Prinivil 5 twice a day and started her on Cardizem 240 instead I discussed the case with his nurse on agreement and the patient Code(s): D64.9 - Anemia, unspecified Qualifiers: Anemia type: iron deficiency
--- NOTE | 2017-10-06 11:45 | PT.PROG ---
Progress Note Progress Note: S. Patient stated that she is very tired this morning. She reports that she is not feeling great. O. Patient performed seated exercises in the form of; long arc quads, heel toe raises and marches all x 10. Patient performed sit to stands x 3 and stepped up on the scale. Patient sat at edge of bed for approximately 5 minutes. Patient was left in bed with alarm and call light. A. Patient tolerated exercises poor. She is very weak and has very poor endurance. Patient would continue to benefit from skilled therapy at this time. P. Continue POC.
--- NOTE | 2017-10-06 13:47 | EKG ---
[address] [place] [address] Measurements Intervals [place] Rate: 126 P: NH: 0 QRS: 72 QRSD: 102 T: 100 QT: 295 QTc: 369 Interpretive Statements ATRIAL FLUTTER/FIBRIATION WITH RAPID VENTRICULAR RESPONSE ST & T-WAVE ABNORMALITY POSSIBLE INFRO-LATERAL ISCHEMIA ABNORMAL RHYTHM ECG Compared to ECG 10/03/2017 14:26:36 T-wave abnormality still present Electronically Signed On 10-06-17 14:41:18 MST by Pedro Pablo Izaguirre [email or web address]
[2017-10-06] MEDS: HYDROcodone-APAP 5 MG -325 MG TABLET PO PRN (14:53)
--- NOTE | 2017-10-06 15:05 | CD ---
[facility] Interpretive Statements [email or web address]
[2017-10-06 16:34] VITALS: BP 174/103; RESP 17; TEMP 97.2; O2SAT 90
[2017-10-06] MEDS ORDERED: cefTRIAXone Inj 2 GM in Sodium Chloride 0.9% 100 ML IV SCH (17:00)
--- NOTE | 2017-10-06 17:11 | DCSUMMARY ---
Hospitalization Summary Hospital Course: Final Discharge Diagnosis: Current Visit Problems Problem Status Onset Code Pneumonia Acute J18.9 Atrial fibrillation and flutter Acute I48.91, I48.92 Confusion Acute R41.0 Anemia Acute D64.9 Diagnostic Data, Laboratory Data, and Procedures of Signifigance: Laboratory Results 10/05/17 10/06/17 10/06/17 Range/Units 17:58 09:03 12:09 VBG pH 7.37 7.36 (7.32-7.42) VBG pCO2 53 47 (45-55) mmHg VBG HCO3 31 H 26 (22-26) mmol/L VBG Base Excess 6 H 1 (-2-2) MMOL/L Troponin I 0.037 (< 0.040) ng/mL Abnormal Lab Results (Last 24 Hours) Range/Units 10/05/17 17:58 VBG HCO3 (22-26) mmol/L 31 H VBG Base Excess (-2-2) MMOL/L 6 H CBC and BMP 10/05/17 06:00 10/05/17 06:00 Medical History Pneumonia (Acute) Atrial fibrillation and flutter (Acute) Confusion (Acute) Anemia (Acute) Rheumatoid arthritis with rheumatoid factor of unspecified site without organ or systems involvement (Acute 11/04/16) Other chronic pain (Acute 12/12/15) HTN (hypertension) with goal to be determined (Acute 11/08/15) Chronic obstructive pulmonary disease (Acute 11/08/15) Chronic anticoagulation (Acute 11/08/15) Chronic anemia (Acute 12/18/16) Dyspnea (Acute) Acute coronary syndrome (Acute) Dehydration (Acute) Near syncope (Acute) Renal failure (Acute) Adrenal insufficiency (Acute) Hypotension (Acute) Acute renal failure (Acute) Rheumatoid arthritis (Acute) Coronary artery disease (Acute) History of DVT (deep vein thrombosis) (Acute) UTI (urinary tract infection) (Acute) Palpitations (Acute) Orthostatic hypotension (Acute) Nausea and vomiting (Inactive) Benign hypertension COPD (chronic obstructive pulmonary disease) Chronic pain Deep vein thrombosis (DVT) Deep venous thrombosis Hyperlipidemia Peripheral vascular disease RA (rheumatoid arthritis) Renal failure History and Physical pertinent to Admission: This very nice 67-year-old female past medical history significant for COPD with chronic oxygen use and rheumatoid arthritis in the last few days she's been having of increased sleepiness and generalized weakness the last 2 days her daughter has been trying to get her to the emergency room but she would not come finally was evaluated ambulance was called and brought her to the emergency room was found to have right middle lower lobe pneumonia no PE on CAT scan also has productive cough which she developed lately Course of Hospitalization: This very nice 67-year-old female during her hospital stay she was treated with the ceftriaxone 2 g daily and steroids for possible right lower lobe infiltrate and COPD exacerbation which is improved she also needed 2 nights of BiPAP for her CO2 retention. She has been having low urine output she also had some elevation in her BUN and creatinine very slightly but with some fluids this reversed. I kept on a given her a little bit of more fluids with 1 dose of Lasix today still urine output remained the marginal I did some cardiothoracic impedance studies since I didn't have an echo at my disposal. And she showed low stroke volume and the very low stroke index with high systemic vascular resistance and some increased thoracic fluid content pretty much this tells me that the patient ejection fraction might be very low. I am unable to work her up any further most likely will need a catheter since she had stents in the past and echo and cardiology services. Troponins are negative I will also stopped her Neurontin which showed a major sleepy and retaining more CO2. Won't be surprised if this patient has pulmonary hypertension as well I discussed the case with Dr. Palma cardiology at [facility] which graciously accepted the patient for further evaluation and treatment. She has received the 3 days of IV steroids and IV antibiotics WBCs are within normal limits. I have stopped the beta dileep this morning and CATHERINE inhibitor and put her on Cardizem 240 she only received 1 dose of this this a.m. and 9 AM. In regards to her COPD exacerbation she can probably go to oral prednisone 40 mg for next 5 days. And continue either ceftriaxone IV 2 g while she is in the hospital or Augmentin 875/125 twice a day for 4 more days Past Medical History Medical History: Rheumatoid arthritis, coronary artery disease, hypertension Surgical History: Cataract surgery On the date of discharge, the patient was examined: Gen.: No acute distress, alert, nontoxic Heart: Regular rate and rhythm, no murmurs, clicks, gallops, or rubs Lungs: Clear to auscultation bilaterally, breathing is nonlabored Abdomen/GI: Normal tones on auscultation, soft, nontender, nondistended Musculoskeletal/extremities: No clubbing, cyanosis, or edema Vitals reviewed and are listed below Vital Signs (24 hrs) Temp Pulse Pulse Pulse Resp BP Pulse Ox 10/06/17 16:33 97.2 F 17 174/103 90 10/06/17 15:00 125 H 94 10/06/17 13:52 126 H 18 96 10/06/17 13:51 126 H 18 96 10/06/17 11:54 97.6 F 127 H 20 178/122 95 10/06/17 11:00 127 H 97 10/06/17 08:19 97.6 F 124 H 24 172/108 95 10/06/17 07:00 126 H 10/06/17 06:42 118 H 18 94 10/06/17 06:37 94 10/06/17 06:35 122 H 10/06/17 05:00 98.5 F 126 H 24 186/128 95 10/06/17 04:59 94 10/06/17 03:00 123 H 10/06/17 02:54 95 10/06/17 01:12 121 H 18 95 10/06/17 01:11 121 H 18 95 10/06/17 00:53 98.7 F 118 H 22 154/109 94 10/05/17 23:00 120 H 92 10/05/17 20:13 98.8 F 128 H 26 H 159/65 95 10/05/17 19:07 121 H 24 93 10/05/17 19:06 121 H 24 93 10/05/17 19:00 124 H 10/05/17 18:53 97 Assessment and Plan: 1. As per discharge assessments above 2. Disposition: 3. Condition on discharge, stable and improved. 4. Diet: regular diet 5. Activities: resume normal activities 6. Follow-Up: 1. PCP 2. 7. Medications at the Time of Discharge: Home Medications Medication Instructions Recorded Confirmed Type Calcium Acetate 1 cap PO TID #180 cap 11/08/15 10/03/17 History Hydroxychloroquine Sulfate 400 mg PO DAILY #60 tab 11/08/15 10/03/17 History Albuterol Sulfate [ALBUTEROL NEB 1 unit NEB QID PRN #1 box 12/19/15 10/03/17 History SOLN] Oxygen (O2) 1 unit IH QHS #3.5 unit 02/11/16 10/03/17 History Tiotropium Br/Olodaterol HCl 4 gm INH QD #1 inhaler 05/29/16 10/03/17 History [Stiolto Respimat Inhal Calvin] Walker [Ultra-Light Rollator] 1 ea MC ONCE #1 ea 11/04/16 10/03/17 Rx Atorvastatin Calcium 1 tab PO DAILY #30 tab 11/19/16 10/03/17 Rx Ergocalciferol (Vitamin D2) 1 cap PO 2XW #16 cap 12/08/16 10/03/17 Rx [Vitamin D2] Pantoprazole Sodium 1 tab PO BID #60 tab 01/19/17 10/03/17 Rx Citalopram Hydrobromide 20 mg PO DAILY #60 tab 02/11/17 10/03/17 Rx [Citalopram Hbr] Clopidogrel Bisulfate [Plavix] 75 mg PO DAILY #90 tab 02/23/17 10/03/17 Rx Docusate Sodium [Doc-Q-Lace] 100 mg PO TID #270 cap 02/23/17 10/03/17 Rx Olodaterol HCl [Striverdi 1 unit INH ASDIR #4 #4 Samples 02/23/17 10/03/17 Sample Respimat] Sample Umeclidinium [place] [Incruse 62.5 mcg INH QD #1 inhaler 04/01/17 10/03/17 Rx Ellipta] Lisinopril 1 tab PO BID #60 tab 07/02/17 10/03/17 Clinic Tizanidine HCl 1 tab PO TID PRN #120 tab 07/02/17 10/03/17 Clinic predniSONE Tab [Deltasone Tab] 1 tab PO DAILY #30 tab 07/02/17 10/03/17 Clinic celecoxib 200 mg capsule 200 mg PO BID #60 cap 07/30/17 10/03/17 Rx gabapentin 600 mg tablet 600 mg PO TID #90 tab 07/30/17 10/03/17 Rx metoprolol tartrate 25 mg tablet 1 tab PO BID #60 tab 09/02/17 10/03/17 Rx hydrocodone 5 mg-acetaminophen 325 See Label Instructions PO QID PRN 09/14/17 Rx mg tablet #150 tab Mometasone/Formoterol [Dulera 100 8.8 gm IH QID 10/03/17 10/03/17 History Mcg/5 Mcg Inhaler] 3 Generic Name Dose Route Start Last Admin Trade Name Freq PRN Reason Stop Dose Admin Hydrocodone Bitart/Acetaminophen 0 tab 10/03/17 16:35 10/06/17 14:53 [place] 5/325 Tab PO 1 tab QID PRN Administration pain Alprazolam 0.5 mg 10/05/17 17:18 10/05/17 21:57 Xanax Tab PO 0.5 mg TID PRN Administration Restlessness Alprazolam 0.5 mg 10/05/17 18:28 Xanax Tab PO ONCE PRN Restlessness Atorvastatin Calcium 20 mg 10/04/17 21:00 10/05/17 20:04 Lipitor PO 20 mg BEDTIME MONET Administration Calcium Carbonate 2 tab 10/05/17 12:06 10/05/17 12:15 Tums PO 2 tab Q4H PRN Administration Indigestion Citalopram Hydrobromide 20 mg 10/04/17 09:00 10/06/17 09:34 Celexa PO 20 mg DAILY MONET Administration Diltiazem HCl 240 mg 10/06/17 09:00 10/06/17 09:34 Cardizem Cd PO 240 mg DAILY MONET Administration Docusate Sodium 100 mg 10/03/17 21:00 10/06/17 14:53 Colace PO 100 mg TID MONET Administration Ferrous Gluconate 324 mg 10/05/17 15:00 10/06/17 14:53 Fergon PO 324 mg TID MONET Administration Azithromycin 500 mg/ Sodium 250 mls @ 250 mls/hr 10/04/17 17:30 10/05/17 17: 45 Chloride IV 250 mls/hr Q24H MONET Administration Ceftriaxone Sodium 2 gm/ 100 mls @ 200 mls/hr 10/06/17 17:00 10/06/17 16:46 Sodium Chloride IV 200 mls/hr Q24H MONET Administration Sodium Chloride 1,000 mls @ 75 mls/hr 10/05/17 18:30 10/06/17 11:24 Normal Saline PRIMARY IV 75 mls/hr .[id number] MONET Infusion Levalbuterol HCl 1.25 mg 10/03/17 19:00 10/06/17 13:51 Xopenex Neb Soln NEB 1.25 mg RTQ6H MONET Administration Lidocaine HCl 0.5 ml 10/03/17 16:35 Lidocaine Buffered Inj SUBD ONCE PRN IV Starts Lidocaine HCl 10 ml 10/04/17 13:40 Xylocaine Uro-Ject 2% TOPICAL ONCE PRN Discomfort catheter insertion Methylprednisolone Sodium Succinate 40 mg 10/04/17 21:30 10/06/17 14:54 Solu-Medrol Inj IVP 40 mg Q6H MONET Administration Nicotine 1 patch 10/04/17 13:00 10/06/17 09:35 Nicoderm Cq 21mg Patch TRANSDERM 1 patch DAILY MONET Administration Non-Formulary Medication 1 10/06/17 09:00 10/06/17 10:04 Remove Patch TRANSDERM 1 DAILY MONET Administration Ondansetron HCl 4 mg 10/03/17 16:35 10/06/17 08:11 Zofran Inj IVP 4 mg Q4H PRN Administration NAUSEA / VOMITING Sodium Chloride 5 - 20 ml 10/03/17 16:35 Saline Flush IVP BID PRN Flush 8. Time, care, counseling and coordination of care for this discharge is greater than 30 minutes. Exam - Vitals Vital Signs: Vital Signs Temperature 97.2 F Temperature Source Temporal Artery Scan Pulse Rate [Telemetry] 126 Pulse Rate [Pulse Oximeter] 127 Pulse Rate 125 Respiratory Rate 17 Blood Pressure [Left Arm] 174/103 Blood Pressure 135/106 Pulse Ox 90 Oxygen Flow Rate 2 Oxygen Delivery Method Nasal Cannula Height 5 ft 9 in Weight 208 lb 6 oz Patient Problems - Patient Problem List (1) Pneumonia Current Visit: Yes Status: Acute Code(s): J18.9 - Pneumonia, unspecified organism Qualifiers: Pneumonia type: due to unspecified organism Laterality: right Lung location: lower lobe of lung Qualified Code(s): J18.1 - Lobar pneumonia, unspecified organism Category: Medical (2) Chronic obstructive pulmonary disease Current Visit: No Status: Acute Onset Date: 11/08/15 Code(s): J44.9 - Chronic obstructive pulmonary disease, unspecified Qualifiers: Category: Medical (3) Rheumatoid arthritis Current Visit: No Status: Acute Comment: Same medication Code(s): M06.9 - Rheumatoid arthritis, unspecified Category: Medical (4) Anemia Current Visit: Yes Status: Acute Code(s): D64.9 - Anemia, unspecified Qualifiers: Anemia type: iron deficiency Category: Medical
--- NOTE | 2017-10-06 17:18 | DI ---
CT Abdomen/Pelvis W Contrast,10/06/2017 12:30 PM: Clinical History: Anemia and low urine output. Previous Exam: None at this facility. Findings: Multiple helically acquired CT images are obtained through the abdomen and pelvis following the intra venous administration of 75 cc of Isovue 300, and demonstrate bilateral pleural effusions. There is s ome consolidated lung within the lung bases which may represent atelectasis. Coronary artery calcifications are seen and there is mild cardiomegaly. The gallbladder is distended, but also demonstrates some pericholecystic fluid. There is some mild in flammatory changes surrounding the duodenum. There is renal cortical thinning bilaterally. Peripheral vascular calcifications are seen. There is a Oneill catheter within the urinary bladder. There is free fluid layering within the deep pelvis. The uterus and ovaries are not well evaluated but are grossly normal. Diffuse degenerative changes of the spine are seen. Impression: 1. Trace amount of pericholecystic fluid. Correlate clinically as this may simply represent some mild ascites or could represent gallbladder disease. 2. Trace amount of inflammatory changes around the duodenum could also be secondary to some ascites, but could also represent a duodenitis. Correlate clinically. 3. Large bilateral pleural effusions. 4. Cardiomegaly.
--- NOTE | 2017-10-07 10:05 | OTI REPORT ---
Thank you for the referral of Luda Castillo. She was seen on 10/05/17 for an occupational therapy inpatient evaluation secondary to weakness. SUBJECTIVE: The patient is a 67-year-old female who is being seen secondary to right lower lobe pneumonia. The patient has chronic oxygen issues, rheumatoid arthritis, and COPD. Right now the patient is on a Bi-PAP, but she typically is on two liters of oxygen at home. The patient reports that she lives in [place] with her , daughter, and grandkids in a single wide trailer. Per patient's report, it sounds like not everybody gets along in the household. The patient mainly lives in her room and only gets up to go to the bathroom. She eats meals in her room and sometimes her granddaughter comes to eat meals with her. The patient states once in a while throughout the week she will go out to the living room, but this is rare. She states she rarely leaves her home, only for doctor's appointments. The patient does have four stairs going into the trailer. She said the bathroom is set up with a tub/shower combination with a shower chair. She has a raised toilet seat. She states she typically walks with a four wheeled walker. The patient has assistance with laundry, cooking, cleaning, groceries, and driving. The patient states once in a while she may choke on some regular food items, but rarely. She states she does not have difficulty with liquids. She states she is in charge of her medications and takes them twice a day. PAST MEDICAL HISTORY: Past medical history can be found in the patient's medical record. OBJECTIVE FINDINGS: Bed mobility: The patient was able to come from supine to sit with min assist. Range of motion: While sitting edge of bed, the patient had a lot of difficulty with her right upper extremity. She states that she has a rotator cuff tear in this arm. Her left upper extremity was within normal limits for shoulder range of motion in all planes. The patient has good elbow and wrist range of motion bilaterally. Strength: Strength in her right shoulder was 1+/5, strength in the left shoulder was 3+/5 for flexion and abduction. Elbow flexion/extension was 3+/5 and wrist flexion/extension was 4/5. Pain: The patient rates her right shoulder pain as a 6/10 on the verbal analog scale (0=no pain, 10=worst pain) when she is trying to use it. She states at rest it is a dull ache which she rates as a 2-3/10. Oxygen/Heart rate: While sitting edge of bed, the patient's oxygen would drop between 84-88% and her heart rate was approximately 130 beats per minute on average. Activities of daily living: The patient requires mod assist for lower extremity dressing and min assist for upper extremity dressing. Transfers: The patient required max assist to come from sit to stand from a neutral lower surface. We had to raise the surface in order for the patient to come from sit to stand with min assist. Ambulation: The patient requires a wheeled walker along with mod assist to keep her balance. ASSESSMENT: The patient would benefit from skilled occupational therapy to address energy conservation techniques to improve her ability to complete tasks for longer periods of time while keeping her oxygen in the 90s. Problem List: Decreased ability to perform ADLs Decreased ability to perform functional transfers Decreased strength Decreased activity tolerance Short-Term Goals: To be met by discharge from inpatient: Patient will increase left upper extremity shoulder strength to 4+/5, elbow flexion/extension to 4+/5, and wrist flexion/extension to 4+/5. Patient will be able to complete toilet transfer with stand by assist. Patient will be able to complete shower with min assist. Patient will be able to stand x2 minutes while completing hygiene activities with contact guard assist. Patient will be able to dress upper and lower extremities after set up independently. Long-Term Goals: To be met following discharge from inpatient: Patient will be discharged home, demonstrating independence with all functional transfers and ADLs. TREATMENT PLAN: Patient will be seen B.I.D during the week and one time per day over the weekend as an inpatient to address the above goals and objectives. INITIAL TREATMENT: Treatment today consisted of the initial evaluation followed by the patient coming from supine to sit with min assist. The patient sat edge of bed x8 minutes. Her oxygen dropped between 84-88%. The patient was instructed in pursed lipped breathing. Today we performed shoulder and elbow range of motion secondary to her decreased oxygen. Nursing was notified of the patient's heart rate as well as her oxygen levels. It has been reported that her heart rate runs high most of the time. We are not able to have the patient complete a lot of activities as her oxygen does drop and she does have poor activity tolerance at this time. MTDD
== END 2017-10-06 18:19 | disposition short-term general hospital (02) | DRG 194 ==
LOC: ER 13:53 → MED/SURG 16:20
PROVIDERS: ADMIT Internal Medicine; ATTEND Internal Medicine